=== PATIENT | male | born 1995 | race Caucasian/White ===

== ENCOUNTER 2021-01-14 19:34 | Emergency (ER) ==
[~2021-01-14] VITALS: Ht 170.2 cm; Wt 82.8 kg
== END 2021-01-14 22:55 | disposition left against medical advice (07) ==
LOC: M ED 19:34
DX: Z53.29 Procedure and treatment not carried out because of patient's decision for other reasons (principal)

== ENCOUNTER → 2021-10-23 | Outpatient (REF) | payer OTHER ==
[2021-10-23 16:30] LABS: SEMEN APPEARANCE OPAQUE (OPAQUE); SEMEN VISCOSITY LIQUID (LIQUID); SEMEN VOLUME 2.6 ml (2.0-5.0); SEMEN pH 7.5 (7.0-8.0); SPERM CONCENTRATION 34.4 M/ml (>=15.0); WBC CONCENTRATION >1 M/ml (<=1 M/ml)
== END ==
LOC: M LAB REF 16:02
PROVIDERS: ATTEND Physician Assistant Medical
DX: Z01.89 Encounter for other specified special examinations (principal)

== ENCOUNTER → 2023-07-18 | Outpatient (REF) | payer OTHER ==
[2023-07-18 14:09] LABS: SEMEN APPEARANCE OPAQUE (OPAQUE)
[2023-07-18 14:10] LABS: SEMEN VISCOSITY LIQUID (LIQUID); SEMEN pH 8.5 (7.0-8.0); SPERM CONCENTRATION 21.4 M/ml (>=15.0); WBC CONCENTRATION >1 M/ml (<=1 M/ml)
== END ==
LOC: M LAB REF 14:02
PROVIDERS: ATTEND Physician Assistant
DX: N46.9 Male infertility, unspecified (principal)

== ENCOUNTER 2023-12-09 15:47 | Emergency (ER) | payer OTHER ==
[~2023-12-09] VITALS: Ht 170.2 cm; Wt 88.1 kg
[2023-12-09 15:49] VITALS: BP 135/64; TEMP 98.1; O2SAT 99
== END 2023-12-09 18:55 | disposition left against medical advice (07) ==
LOC: M ED 15:47
DX: Z53.21 Procedure and treatment not carried out due to patient leaving prior to being seen by health care provider (principal)

== ENCOUNTER → 2024-01-02 | Outpatient (REF) | payer OTHER ==
[2024-01-02 15:45] LABS: SEMEN APPEARANCE OPAQUE (OPAQUE); SEMEN VISCOSITY LIQUID (LIQUID); SPERM CONCENTRATION 29.6 M/ml (>=15.0); WBC CONCENTRATION <=1 M/ml (<=1 M/ml)
== END ==
LOC: M LAB REF 15:32
PROVIDERS: ATTEND Physician Assistant
DX: N46.9 Male infertility, unspecified (principal)

== ENCOUNTER 2024-04-16 06:02 | Day surgery (SDC) | payer OTHER ==
[~2024-04-16] VITALS: Ht 170.2 cm; Wt 83.2 kg
[2024-04-16] MEDS ORDERED: LR 1,000 ML IV SCH (06:10)
[2024-04-16] MEDS ORDERED: KETOROLAC 60MG 2ML VIAL As Ordered ONE (07:07)
[2024-04-16] MEDS ORDERED: propofoL 200 MG/20 ML VIAL As Ordered ONE (07:07)
[2024-04-16] MEDS ORDERED: LIDOCAINE 2% 100MG/5ML SDV (FOR ANES.) As Ordered ONE (07:07)
[2024-04-16] MEDS ORDERED: ONDANSETRON 4MG 2ML VIAL As Ordered ONE (07:07)
[2024-04-16] MEDS ORDERED: fentaNYL 100 MCG/2 ML INJECTION As Ordered ONE (07:11)
[2024-04-16] MEDS ORDERED: MIDAZOLAM INJ 2MG/2ML VIAL As Ordered ONE (07:11)
[2024-04-16] MEDS: ceFAZolin 2 GM/D5W 50 ML IV BAG As Ordered ONE (07:43)
[2024-04-16] MEDS ORDERED: ACETAMINOPHEN 1000MG/100ML IV BAG As Ordered ONE (07:48)
[2024-04-16] MEDS: BACITRACIN OINTMENT 30GM TUBE As Ordered ONE (08:44)
[2024-04-16] MEDS ORDERED: MEPERIDINE 25 MG/ML 1ML VIAL IV PRN (08:50)
[2024-04-16] MEDS ORDERED: oxyCODONE 5MG TAB PO PRN (08:50)
[2024-04-16] MEDS ORDERED: fentaNYL 100 MCG/2 ML INJECTION IV PRN (08:50)
[2024-04-16] MEDS ORDERED: ONDANSETRON 4MG 2ML VIAL IV PRN (08:50)
[2024-04-16] MEDS ORDERED: PERC5TAB12 PO (09:04)
[2024-04-16 10:05] VITALS: BP 131/67; TEMP 97.6; O2SAT 96
== END 2024-04-16 10:27 | disposition home or self-care (01) ==
LOC: M SDC 06:02
PROVIDERS: ATTEND Orthopaedic Surgery Hand Surgery
DX: M67.432 Ganglion, left wrist (principal); F17.290 Nicotine dependence, other tobacco product, uncomplicated
CPT/HCPCS: 25110; 88305; J0131; J0665; J0690; J1100; J1885; J2250; J2405; J3010